=== PATIENT | male | born 1985 | race Caucasian/White ===

== ENCOUNTER 2018-04-15 21:00 | Emergency (ER) | payer SELFPAY, MEDICAID | END 2018-04-16 02:22 | disposition left against medical advice (07) | LOC: FTE 21:00 | DX: Z53.21 Procedure and treatment not carried out due to patient leaving prior to being seen by health care provider (principal) ==

== ENCOUNTER 2018-04-16 16:59 | Emergency (ER) | payer MEDICAID | END 2018-04-16 19:50 | disposition home or self-care (01) | LOC: FTE 16:59 | DX: H93.12 Tinnitus, left ear (principal); R42 Dizziness and giddiness | CPT/HCPCS: 70450; 99284-25 ==